=== PATIENT | male | born 1990 | race African-American/Black ===

== ENCOUNTER 2017-10-11 02:53 | Emergency (ER) | payer OTHER ==
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
[2017-10-11 03:57] LABS: ALCOHOL 227 mg/dL (NONE DETECTED); BLOOD UREA NITROGEN 14 mg/dL (7-20); CHLORIDE 104 mmol/L (98-107); GLUCOSE 84 mg/dL (75-110); POTASSIUM 4.5 mmol/L (3.6-5.0)
[2017-10-11 04:03] LABS: CARBON DIOXIDE 20 mmol/L (22-30); SODIUM 145.4 mmol/L (137-145)
[2017-10-11 04:04] LABS: ANION GAP 21 (5-19)
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
[2017-10-11] MEDS ORDERED: NORMAL SALINE 1000 ML 1,000 ML IV ONE (04:16)
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
[2017-10-11 05:39] VITALS: BP 137/74
== END 2017-10-11 05:33 | disposition home or self-care (01) ==
LOC: ER 02:53
DX: M54.2 Cervicalgia (principal); M54.9 Dorsalgia, unspecified; F10.929 Alcohol use, unspecified with intoxication, unspecified; V49.9XXA Car occupant (driver) (passenger) injured in unspecified traffic accident, initial encounter; Z88.6 Allergy status to analgesic agent
CPT/HCPCS: 99284; 96360; 36415; 80307; 80048; 70450; 71260; 72125; 74177; J7030